=== PATIENT | female | born 1935 | race Caucasian/White ===

== ENCOUNTER → 2019-10-18 14:00 | Outpatient (BNVA) | payer MEDICARE, OTHER, SELFPAY | PROVIDERS: PCP Nurse Practitioner Family; Visit Provider Family Medicine | DX: E78.2 Mixed hyperlipidemia (principal); I10 Essential (primary) hypertension; G47.00 Insomnia, unspecified; Z87.442 Personal history of urinary calculi | CPT/HCPCS: 80053; 80061; 84443; 85025 ==

== ENCOUNTER → 2020-10-24 09:45 | Outpatient (BNVA) | payer MEDICARE, OTHER, SELFPAY | PROVIDERS: PCP Nurse Practitioner Family; Visit Provider Nurse Practitioner Family | DX: I10 Essential (primary) hypertension (principal); G47.00 Insomnia, unspecified; E55.9 Vitamin D deficiency, unspecified; E78.5 Hyperlipidemia, unspecified; Z87.442 Personal history of urinary calculi | CPT/HCPCS: 80053; 80061; 82306; 84443; 85025 ==

== ENCOUNTER → 2021-08-18 11:22 | Outpatient (BNVA) | payer MEDICARE, OTHER, SELFPAY | PROVIDERS: PCP Nurse Practitioner Family; Visit Provider Family Medicine | DX: E55.9 Vitamin D deficiency, unspecified (principal); E78.5 Hyperlipidemia, unspecified; I10 Essential (primary) hypertension; G47.00 Insomnia, unspecified; B35.1 Tinea unguium | CPT/HCPCS: 80053; 80061; 82306; 84443; 85025 ==